=== PATIENT | female | born 1975 | race Two or more races ===

== ENCOUNTER 2018-09-01 12:25 | Emergency (ER) | payer MEDICAID ==
[~2018-09-01] VITALS: Ht 157.5 cm; Wt 78.6 kg
[2018-09-01 13:11] LABS: BASOPHILS % (AUTO) 0.5 % (0-1); EOSINOPHILS # (AUTO) 0.4 X10'3 (0-0.9); EOSINOPHILS % (AUTO) 4.4 % (0-6); HEMATOCRIT 41.8 % (35.0-45.0); LYMPHOCYTES # (AUTO) 1.2 X10'3 (1.1-4.8); LYMPHOCYTES % (AUTO) 14.3 % (21-51); MEAN CORPUSCULAR HEMOGLOBIN 27.8 PG (27.0-31.0); MEAN CORPUSCULAR HGB CONC 33.6 % (33.0-36.5); MEAN CORPUSCULAR VOLUME 82.7 FL (78-98); MEAN PLATELET VOLUME 7.8 FL (7.4-10.4); MONOCYTES # (AUTO) 0.5 X10'3 (0-0.9); MONOCYTES % (AUTO) 5.7 % (2-12); NEUTROPHILS # (AUTO) 6.5 X10'3 (1.8-7.7); NEUTROPHILS % (AUTO) 75.1 % (42-75); PLATELET COUNT 273 X10'3 (140-440); RED BLOOD COUNT 5.06 X10'6 (4.20-5.60); RED CELL DISTRIBUTION WIDTH 13.3 % (11.5-14.5); WHITE BLOOD COUNT 8.6 X10'3 (4.5-11.0)
[2018-09-01 13:19] LABS: ALANINE AMINOTRANSFERASE 21 U/L (12-78); ALBUMIN 3.7 G/DL (3.4-5.0); ALBUMIN/GLOBULIN RATIO 0.9 (1.1-1.5); ALKALINE PHOSPHATASE 67 IU/L (46-116); ANION GAP 11 (8-16); ASPARTATE AMINO TRANSFERASE 17 U/L (10-37); BILIRUBIN,TOTAL 0.4 MG/DL (0.1-1.0); BLOOD UREA NITROGEN 13 MG/DL (7-18); BUN/CREATININE RATIO 13.4 (6.6-38.0); CALCIUM 10.1 MG/DL (8.5-10.1); CHLORIDE 99 MMOL/L (99-107); CREATININE 0.97 MG/DL (0.40-0.90); GLUCOSE 97 MG/DL (70-104); POTASSIUM 3.4 MMOL/L (3.5-5.1); SODIUM 136 MMOL/L (135-145); TOTAL PROTEIN 7.9 G/DL (6.4-8.2); eGFR 63 ML/MIN
[2018-09-01 13:20] LABS: PARTIAL THROMBOPLASTIN TIME 29 SECONDS (22-32); PROTHROMBIN TIME 10.1 SECONDS (9.0-12.0)
[2018-09-01] MEDS ORDERED: PANT20TA3 PO (14:23)
[2018-09-01 14:34] VITALS: BP 132/92
== END 2018-09-01 14:37 | disposition home or self-care (01) ==
LOC: ER 12:26
DX: M94.0 Chondrocostal junction syndrome [Tietze] (principal); Z79.899 Other long term (current) drug therapy
CPT/HCPCS: 36415; 71045; 80053; 84484; 85025; 85610; 85730; 93005; 99284

== ENCOUNTER 2018-11-09 12:25 | Emergency (ER) | payer MEDICAID ==
[~2018-11-09] VITALS: Ht 157.5 cm; Wt 80.0 kg
[~2018-11-09 12:25] MED LIST: PANT20TA3 PO
[2018-11-09 13:33] LABS: CLARITY,URINE SLIGHTLY CLOUDY (Clear); COLOR,URINE STRAW (Yellow); GLUCOSE, URINE NEGATIVE (Neg); KETONES,URINE NEGATIVE (Neg); LEUKOCYTE ESTERASE ,URINE TRACE (Neg); NITRITES, URINE NEGATIVE (Neg); OCCULT BLOOD,URINE SMALL (Neg); PH,URINE 5.5 (4.8-8.0); PROTEIN,URINE NEGATIVE (Neg); UROBILINOGEN,URINE 0.2 E.U/dL (0.2-1.0)
[2018-11-09 13:35] LABS: URINE HCG NEGATIVE (NEG)
[2018-11-09 13:36] LABS: BASOPHILS % (AUTO) 0.7 % (0-1); EOSINOPHILS # (AUTO) 0.3 X10'3 (0-0.9); EOSINOPHILS % (AUTO) 4.8 % (0-6); HEMATOCRIT 42.7 % (35.0-45.0); HEMOGLOBIN 14.5 g/dl (12.0-16.0); LYMPHOCYTES # (AUTO) 1.2 X10'3 (1.1-4.8); LYMPHOCYTES % (AUTO) 17.8 % (21-51); MEAN CORPUSCULAR HEMOGLOBIN 27.9 PG (27.0-31.0); MEAN CORPUSCULAR HGB CONC 33.9 g/dL (33.0-36.5); MEAN CORPUSCULAR VOLUME 82.2 FL (78-98); MEAN PLATELET VOLUME 7.4 FL (7.4-10.4); MONOCYTES # (AUTO) 0.4 X10'3 (0-0.9); MONOCYTES % (AUTO) 6.3 % (2-12); NEUTROPHILS # (AUTO) 4.9 X10'3 (1.8-7.7); NEUTROPHILS % (AUTO) 70.4 % (42-75); PLATELET COUNT 266 X10'3 (140-440); RED BLOOD COUNT 5.19 X10'6 (4.20-5.60); RED CELL DISTRIBUTION WIDTH 13.7 % (11.5-14.5); WHITE BLOOD COUNT 6.9 X10'3 (4.5-11.0)
[2018-11-09 13:37] LABS: UA COLLECTION TYPE CLN CATCH MIDSTREAM
[2018-11-09 13:46] LABS: ALANINE AMINOTRANSFERASE 22 U/L (12-78); ALBUMIN 3.7 G/DL (3.4-5.0); ALBUMIN/GLOBULIN RATIO 0.8 (1.1-1.5); ALKALINE PHOSPHATASE 68 IU/L (46-116); ANION GAP 8 (8-16); ASPARTATE AMINO TRANSFERASE 17 U/L (10-37); BILIRUBIN,TOTAL 0.3 MG/DL (0.1-1.0); BLOOD UREA NITROGEN 18 MG/DL (7-18); BUN/CREATININE RATIO 18.2 (6.6-38.0); CALCIUM 9.2 MG/DL (8.5-10.1); CHLORIDE 99 MMOL/L (99-107); CREATININE 0.99 MG/DL (0.40-0.90); GLUCOSE 92 MG/DL (70-104); POTASSIUM 3.6 MMOL/L (3.5-5.1); SODIUM 136 MMOL/L (135-145); TOTAL CARBON DIOXIDE 29.1 MMOL/L (24-32); TOTAL PROTEIN 8.1 G/DL (6.4-8.2); eGFR 62 ML/MIN
[2018-11-09 14:08] LABS: MUCUS STRANDS NONE SEEN /LPF (Neg); SQUAMOUS EPITHELIAL CELL,UR FEW /LPF (FEW)
[2018-11-09 14:09] LABS: BACTERIA,URINE FEW /HPF (Neg); RBC,URINE 0-2 /HPF (0-2); WBC,URINE 0-4 /HPF (0-4)
[2018-11-09 16:00] VITALS: BP 143/92
== END 2018-11-09 16:02 | disposition home or self-care (01) ==
LOC: ER 12:25
DX: K42.9 Umbilical hernia without obstruction or gangrene (principal); R10.32 Left lower quadrant pain; R11.0 Nausea; Z79.899 Other long term (current) drug therapy
CPT/HCPCS: 36415; 74176; 80053; 81001; 81025; 85025; 87088; 93005; 99284

== ENCOUNTER 2018-11-17 02:13 | Emergency (ER) | payer MEDICAID ==
[~2018-11-17] VITALS: Ht 162.6 cm; Wt 75.0 kg
[2018-11-17 02:17] VITALS: BP 160/100
== END 2018-11-17 02:39 | disposition home or self-care (01) ==
LOC: ER 02:14
DX: R20.2 Paresthesia of skin (principal); R20.0 Anesthesia of skin; R42 Dizziness and giddiness; R07.9 Chest pain, unspecified; F43.9 Reaction to severe stress, unspecified; Z79.899 Other long term (current) drug therapy
CPT/HCPCS: 93005; 99283

== ENCOUNTER 2019-05-16 01:14 | Emergency (ER) | payer MEDICAID ==
[~2019-05-16] VITALS: Ht 157.5 cm; Wt 74.5 kg
[2019-05-16 02:07] LABS: BASOPHILS % (AUTO) 0.5 % (0-1); EOSINOPHILS # (AUTO) 0.4 X10'3 (0-0.9); EOSINOPHILS % (AUTO) 4.3 % (0-6); HEMATOCRIT 41.7 % (35.0-45.0); HEMOGLOBIN 13.9 g/dl (12.0-16.0); LYMPHOCYTES # (AUTO) 1.5 X10'3 (1.1-4.8); LYMPHOCYTES % (AUTO) 16.1 % (21-51); MEAN CORPUSCULAR HEMOGLOBIN 28.4 PG (27.0-31.0); MEAN CORPUSCULAR HGB CONC 33.4 g/dL (33.0-36.5); MEAN CORPUSCULAR VOLUME 84.9 FL (78-98); MONOCYTES # (AUTO) 0.6 X10'3 (0-0.9); MONOCYTES % (AUTO) 6.1 % (2-12); NEUTROPHILS # (AUTO) 6.6 X10'3 (1.8-7.7); PLATELET COUNT 231 X10'3 (140-440); RED BLOOD COUNT 4.91 X10'6 (4.20-5.60); RED CELL DISTRIBUTION WIDTH 13.4 % (11.5-14.5)
[2019-05-16 02:17] LABS: ALANINE AMINOTRANSFERASE 20 U/L (12-78); ALBUMIN 3.4 G/DL (3.4-5.0); ALBUMIN/GLOBULIN RATIO 0.9 (1.1-1.5); ALKALINE PHOSPHATASE 57 IU/L (46-116); ANION GAP 7 (8-16); ASPARTATE AMINO TRANSFERASE 12 U/L (10-37); BILIRUBIN,TOTAL 0.2 MG/DL (0.1-1.0); BLOOD UREA NITROGEN 15 MG/DL (7-18); BUN/CREATININE RATIO 14.7 (6.6-38.0); CALCIUM 8.1 MG/DL (8.5-10.1); CHLORIDE 104 MMOL/L (99-107); CREATININE 1.02 MG/DL (0.40-0.90); GLUCOSE 99 MG/DL (70-104); PARTIAL THROMBOPLASTIN TIME 30 SECONDS (22-32); POTASSIUM 3.6 MMOL/L (3.5-5.1); SODIUM 138 MMOL/L (135-145); TOTAL CARBON DIOXIDE 27.4 MMOL/L (24-32); TOTAL PROTEIN 7.4 G/DL (6.4-8.2); eGFR 59 ML/MIN
[2019-05-16 03:03] VITALS: BP 134/86
[2019-05-16] MEDS ORDERED: FAMO-128 PO (03:31)
[2019-05-16] MEDS ORDERED: MECL-111 PO (03:31)
== END 2019-05-16 03:49 | disposition home or self-care (01) ==
LOC: ER 01:15
DX: K29.70 Gastritis, unspecified, without bleeding (principal); H81.13 Benign paroxysmal vertigo, bilateral; I10 Essential (primary) hypertension; K21.9 Gastro-esophageal reflux disease without esophagitis; Z79.899 Other long term (current) drug therapy
CPT/HCPCS: 36415; 71045; 80053; 84484; 85025; 85610; 85730; 93005; 99284

== ENCOUNTER 2019-07-14 02:57 | Emergency (ER) | payer MEDICAID ==
[~2019-07-14] VITALS: Ht 157.5 cm; Wt 68.2 kg
[~2019-07-14 02:57] MED LIST changes: +FAMO-128 PO; +MECL-111 PO
[2019-07-14] MEDS ORDERED: ketorolac trometh. 30mg/ml inj. IV ONE (03:05)
[2019-07-14 03:35] LABS: URINE HCG NEGATIVE (NEG)
[2019-07-14 03:36] LABS: BASOPHILS % (AUTO) 0.6 % (0-1); EOSINOPHILS # (AUTO) 0.4 X10'3 (0-0.9); EOSINOPHILS % (AUTO) 4.7 % (0-6); HEMATOCRIT 39.2 % (35.0-45.0); HEMOGLOBIN 13.5 g/dl (12.0-16.0); LYMPHOCYTES # (AUTO) 1.7 X10'3 (1.1-4.8); LYMPHOCYTES % (AUTO) 21.9 % (21-51); MEAN CORPUSCULAR HEMOGLOBIN 29.1 PG (27.0-31.0); MEAN CORPUSCULAR HGB CONC 34.3 g/dL (33.0-36.5); MEAN CORPUSCULAR VOLUME 84.8 FL (78-98); MEAN PLATELET VOLUME 7.9 FL (7.4-10.4); MONOCYTES # (AUTO) 0.5 X10'3 (0-0.9); MONOCYTES % (AUTO) 6.8 % (2-12); NEUTROPHILS # (AUTO) 5.1 X10'3 (1.8-7.7); PLATELET COUNT 194 X10'3 (140-440); RED BLOOD COUNT 4.63 X10'6 (4.20-5.60); RED CELL DISTRIBUTION WIDTH 13.1 % (11.5-14.5); WHITE BLOOD COUNT 7.8 X10'3 (4.5-11.0)
[2019-07-14 03:41] LABS: CLARITY,URINE SLIGHTLY CLOUDY (Clear); COLOR,URINE YELLOW (Yellow); GLUCOSE, URINE NEGATIVE (Neg); KETONES,URINE NEGATIVE (Neg); LEUKOCYTE ESTERASE ,URINE NEGATIVE (Neg); NITRITES, URINE NEGATIVE (Neg); OCCULT BLOOD,URINE LARGE (Neg); PH,URINE 6.5 (4.8-8.0); PROTEIN,URINE NEGATIVE (Neg); UROBILINOGEN,URINE 0.2 E.U/dL (0.2-1.0)
[2019-07-14 03:42] LABS: UA COLLECTION TYPE CLN CATCH MIDSTREAM
[2019-07-14 03:48] LABS: ALANINE AMINOTRANSFERASE 20 U/L (12-78); ALBUMIN 3.5 G/DL (3.4-5.0); ALBUMIN/GLOBULIN RATIO 0.8 (1.1-1.5); ALKALINE PHOSPHATASE 62 IU/L (46-116); ANION GAP 8 (8-16); ASPARTATE AMINO TRANSFERASE 27 U/L (10-37); BACTERIA,URINE 1+ /HPF (Neg); BILIRUBIN,TOTAL 0.3 MG/DL (0.1-1.0); BLOOD UREA NITROGEN 15 MG/DL (7-18); BUN/CREATININE RATIO 15.5 (6.6-38.0); CHLORIDE 104 MMOL/L (99-107); CREATININE 0.97 MG/DL (0.40-0.90); GLUCOSE 94 MG/DL (70-104); HYALINE CASTS 0-3 /LPF (NEGATIVE); POTASSIUM 3.5 MMOL/L (3.5-5.1); SODIUM 140 MMOL/L (135-145); SQUAMOUS EPITHELIAL CELL,UR MODERATE /LPF (FEW); TOTAL CARBON DIOXIDE 28.4 MMOL/L (24-32); TOTAL PROTEIN 7.7 G/DL (6.4-8.2); WBC,URINE 0-4 /HPF (0-4); eGFR 63 ML/MIN
[2019-07-14 03:49] LABS: FINE GRANULAR CAST 0-3 /LPF (NEGATIVE); URINE AMPHETAMINE SCREEN NEGATIVE (Neg); URINE BARBITUATE SCREEN NEGATIVE (Neg); URINE BENZODIAZEPINES SCREEN NEGATIVE (Neg); URINE CANNABINOID SCREEN NEGATIVE (Neg); URINE COCAINE SCREEN NEGATIVE (Neg); URINE METHADONE SCREEN NEGATIVE (Neg); URINE OPIATE SCREEN NEGATIVE (Neg); URINE PHENCYCLIDINE SCREEN NEGATIVE (Neg)
[2019-07-14 03:56] LABS: MAGNESIUM 1.8 MG/DL (1.5-2.4)
[2019-07-14 04:21] VITALS: BP 159/95
== END 2019-07-14 04:25 | disposition home or self-care (01) ==
LOC: ER 02:58
DX: R07.89 Other chest pain (principal); I10 Essential (primary) hypertension; K21.9 Gastro-esophageal reflux disease without esophagitis; F17.200 Nicotine dependence, unspecified, uncomplicated; Z79.899 Other long term (current) drug therapy
CPT/HCPCS: 36415; 71045; 80053; 80305; 81001; 81025; 83735; 83880; 84484; 85025; 96374; 99284; J1885; 93005

== ENCOUNTER 2020-03-06 00:56 | Emergency (ER) | payer MEDICAID ==
[~2020-03-06] VITALS: Ht 157.5 cm; Wt 160.0 kg
[~2020-03-06 00:56] MED LIST changes: -MECL-111 PO; +MECL-159 PO
[2020-03-06] MEDS ORDERED: sucralfate 1gm/10ml UD suspension PO SCH (02:00)
[2020-03-06] MEDS ORDERED: LIDOcaine Viscous 15ml cup MM PRN (02:00)
[2020-03-06] MEDS ORDERED: ondansetron 4mg rapidly disintigrating tab PO ONE (02:00)
[2020-03-06] MEDS ORDERED: mag hydrox/Alum hydrox/simeth 30ml oral suspension PO ONE (02:00)
[2020-03-06] MEDS ORDERED: meclizine 12.5mg tablet PO ONE (02:00)
[2020-03-06 02:01] LABS: BASOPHILS # (AUTO) 0.1 X10'3 (0-0.2); BASOPHILS % (AUTO) 0.6 % (0-1); EOSINOPHILS # (AUTO) 0.3 X10'3 (0-0.9); HEMATOCRIT 41.5 % (35.0-45.0); LYMPHOCYTES # (AUTO) 1.7 X10'3 (1.1-4.8); LYMPHOCYTES % (AUTO) 15.1 % (21-51); MEAN CORPUSCULAR HEMOGLOBIN 28.8 PG (27.0-31.0); MEAN CORPUSCULAR HGB CONC 33.8 g/dL (33.0-36.5); MEAN CORPUSCULAR VOLUME 85.3 FL (78-98); MEAN PLATELET VOLUME 8.1 FL (7.4-10.4); MONOCYTES # (AUTO) 0.6 X10'3 (0-0.9); MONOCYTES % (AUTO) 5.4 % (2-12); NEUTROPHILS # (AUTO) 8.3 X10'3 (1.8-7.7); NEUTROPHILS % (AUTO) 75.9 % (42-75); PLATELET COUNT 232 X10'3 (140-440); RED BLOOD COUNT 4.86 X10'6 (4.20-5.60); RED CELL DISTRIBUTION WIDTH 13.6 % (11.5-14.5)
[2020-03-06 02:12] LABS: ALANINE AMINOTRANSFERASE 19 U/L (12-78); ALBUMIN 3.7 G/DL (3.4-5.0); ALBUMIN/GLOBULIN RATIO 0.9 (1.1-1.5); ALKALINE PHOSPHATASE 55 IU/L (46-116); ANION GAP 10 (8-16); ASPARTATE AMINO TRANSFERASE 19 U/L (10-37); BILIRUBIN,TOTAL 0.3 MG/DL (0.1-1.0); BLOOD UREA NITROGEN 11 MG/DL (7-18); BUN/CREATININE RATIO 10.5 (6.6-38.0); CALCIUM 8.6 MG/DL (8.5-10.1); CHLORIDE 102 MMOL/L (99-107); CREATININE 1.05 MG/DL (0.40-0.90); GLUCOSE 98 MG/DL (70-104); POTASSIUM 3.7 MMOL/L (3.5-5.1); SODIUM 139 MMOL/L (135-145); TOTAL CARBON DIOXIDE 26.8 MMOL/L (24-32); TOTAL PROTEIN 7.6 G/DL (6.4-8.2); eGFR 57 ML/MIN
[2020-03-06] MEDS ORDERED: ONDA4TAB6 PO (02:31)
[2020-03-06] MEDS ORDERED: OMEP20CA15 PO (02:31)
[2020-03-06] MEDS ORDERED: MECL-159 PO (02:31)
[2020-03-06 02:45] VITALS: BP 167/108
== END 2020-03-06 02:46 | disposition home or self-care (01) ==
LOC: ER 00:57
DX: K21.9 Gastro-esophageal reflux disease without esophagitis (principal); R07.89 Other chest pain; R11.2 Nausea with vomiting, unspecified; R42 Dizziness and giddiness; I10 Essential (primary) hypertension; Z98.890 Other specified postprocedural states
CPT/HCPCS: 36415; 71045; 80053; 82948; 84484; 85025; 93005; 99285; J8597

== ENCOUNTER 2020-07-05 01:20 | Emergency (ER) | payer MEDICAID ==
[~2020-07-05] VITALS: Ht 157.5 cm; Wt 68.2 kg
[~2020-07-05 01:20] MED LIST changes: +OMEP20CA15 PO; +ONDA4TAB6 PO; +PANT20TA18 PO; -PANT20TA3 PO
--- NOTE | 2020-07-05 01:32 | NUR ---
PT REPORTS SHE IS NOT STAYING AWAY FROM SALT INTAKE. INSTRUCTED HER TO STAY AWAY FROM FROZEN FOODS/PROCESSED FOODS/AND CANNED FOODS AND LIMIT EATING OUT. INFORMED.
[2020-07-05] MEDS ORDERED: metoprolol tartrate 50mg tablet PO ONE (02:50)
--- NOTE | 2020-07-05 02:50 | NUR ---
DR. LEES TALKING WITH PT ABOUT DC. HE REQUESTS TO TEST [facility] HOME UNIT AGAINST OURS. [facility] HOME WRIST BP MONITOR READING 155/104 ON L WRIST, ER ROOM MONITOR READING ON LEFT UPPER ARM 136/94,
[2020-07-05 03:07] VITALS: BP 138/89
== END 2020-07-05 03:11 | disposition home or self-care (01) ==
LOC: ER 01:21
DX: I10 Essential (primary) hypertension (principal); R42 Dizziness and giddiness; K21.9 Gastro-esophageal reflux disease without esophagitis; Z79.899 Other long term (current) drug therapy
CPT/HCPCS: 93005; 99283

== ENCOUNTER 2021-02-12 22:28 | Emergency (ER) | payer MEDICAID ==
[~2021-02-12] VITALS: Ht 157.5 cm; Wt 76.3 kg
[2021-02-12 23:46] VITALS: BP 151/95
== END 2021-02-12 23:49 | disposition home or self-care (01) ==
LOC: ER 22:28
DX: M79.671 Pain in right foot (principal); M79.89 Other specified soft tissue disorders; I10 Essential (primary) hypertension; K21.9 Gastro-esophageal reflux disease without esophagitis; Z79.899 Other long term (current) drug therapy
CPT/HCPCS: 99282

== ENCOUNTER 2023-01-19 11:37 | Emergency (ER) | payer MEDICAID ==
[~2023-01-19] VITALS: Ht 157.5 cm; Wt 68.2 kg
[2023-01-19 12:03] LABS: BASOPHILS % (AUTO) 0.5 % (0-1); EOSINOPHILS # (AUTO) 0.3 X10'3 (0-0.9); EOSINOPHILS % (AUTO) 4.1 % (0-6); HEMATOCRIT 42.1 % (35.0-45.0); HEMOGLOBIN 14.4 g/dl (12.0-16.0); LYMPHOCYTES # (AUTO) 1.3 X10'3 (1.1-4.8); LYMPHOCYTES % (AUTO) 20.6 % (21-51); MEAN CORPUSCULAR HEMOGLOBIN 28.5 PG (27.0-31.0); MEAN CORPUSCULAR HGB CONC 34.3 g/dL (33.0-36.5); MEAN CORPUSCULAR VOLUME 83.3 FL (78-98); MEAN PLATELET VOLUME 7.6 FL (7.4-10.4); MONOCYTES # (AUTO) 0.4 X10'3 (0-0.9); MONOCYTES % (AUTO) 5.6 % (2-12); NEUTROPHILS # (AUTO) 4.5 X10'3 (1.8-7.7); NEUTROPHILS % (AUTO) 69.2 % (42-75); PLATELET COUNT 243 X10'3 (140-440); RED BLOOD COUNT 5.06 X10'6 (4.20-5.60); RED CELL DISTRIBUTION WIDTH 13.5 % (11.5-14.5); WHITE BLOOD COUNT 6.5 X10'3 (4.5-11.0)
[2023-01-19 12:18] LABS: ALANINE AMINOTRANSFERASE 25 U/L (12-78); ALBUMIN 3.6 G/DL (3.4-5.0); ALBUMIN/GLOBULIN RATIO 0.9 (1.1-1.5); ALKALINE PHOSPHATASE 76 IU/L (46-116); ANION GAP 9 (8-16); ASPARTATE AMINO TRANSFERASE 21 U/L (10-37); BILIRUBIN,TOTAL 0.3 MG/DL (0.1-1.0); BLOOD UREA NITROGEN 16 MG/DL (7-18); BUN/CREATININE RATIO 14.5 (10.0-20.0); CALCIUM 9.9 MG/DL (8.5-10.1); CHLORIDE 100 MMOL/L (99-107); GLUCOSE 131 MG/DL (70-104); POTASSIUM 3.3 MMOL/L (3.5-5.1); SODIUM 139 MMOL/L (135-145); TOTAL CARBON DIOXIDE 30.5 MMOL/L (24-32); TOTAL PROTEIN 7.7 G/DL (6.4-8.2); eGFR 54 ML/MIN
[2023-01-19 12:26] LABS: MAGNESIUM 1.9 MG/DL (1.5-2.4)
[2023-01-19 13:28] VITALS: BP 140/102
[2023-01-19] MEDS ORDERED: LIDOcaine Viscous 15ml cup MM ONE ×2 (14:10→14:25)
[2023-01-19] MEDS ORDERED: ibuprofen 200mg tablet PO ONE (14:10)
[2023-01-19] MEDS ORDERED: pantoprazole 40mg Tablet.DR PO ONE (14:10)
[2023-01-19] MEDS ORDERED: mag hydrox/Alum hydrox/simeth 30ml oral suspension PO ONE (14:10)
== END 2023-01-19 14:56 | disposition home or self-care (01) ==
LOC: ER 11:38
DX: R07.89 Other chest pain (principal); I10 Essential (primary) hypertension; K21.9 Gastro-esophageal reflux disease without esophagitis
CPT/HCPCS: 36415; 71045; 80053; 83735; 83880; 84484; 85025; 93005; 99285; J7030

== ENCOUNTER 2023-08-27 15:32 | Inpatient (IN) | payer MEDICAID ==
[~2023-08-27] VITALS: Ht 157.5 cm; Wt 80.0 kg
[~2023-08-27 15:32] MED LIST changes: -MECL-159 PO; +MECL-302 PO
[2023-08-27 16:34] LABS: BASOPHILS # (AUTO) 0.1 X10'3 (0-0.2); BASOPHILS % (AUTO) 0.9 % (0-1); EOSINOPHILS # (AUTO) 0.3 X10'3 (0-0.9); EOSINOPHILS % (AUTO) 3.5 % (0-6); HEMATOCRIT 41.4 % (35.0-45.0); HEMOGLOBIN 13.9 g/dl (12.0-16.0); LYMPHOCYTES # (AUTO) 1.3 X10'3 (1.1-4.8); LYMPHOCYTES % (AUTO) 15.5 % (21-51); MEAN CORPUSCULAR HEMOGLOBIN 28.2 PG (27.0-31.0); MEAN CORPUSCULAR HGB CONC 33.6 g/dL (33.0-36.5); MEAN CORPUSCULAR VOLUME 84.2 FL (78-98); MEAN PLATELET VOLUME 7.3 FL (7.4-10.4); MONOCYTES # (AUTO) 0.5 X10'3 (0-0.9); MONOCYTES % (AUTO) 6.4 % (2-12); NEUTROPHILS # (AUTO) 6.1 X10'3 (1.8-7.7); NEUTROPHILS % (AUTO) 73.7 % (42-75); PLATELET COUNT 258 X10'3 (140-440); RED BLOOD COUNT 4.92 X10'6 (4.20-5.60); RED CELL DISTRIBUTION WIDTH 13.7 % (11.5-14.5); WHITE BLOOD COUNT 8.3 X10'3 (4.5-11.0)
[2023-08-27 17:10] LABS: ALANINE AMINOTRANSFERASE 25 U/L (12-78); ALBUMIN 3.6 G/DL (3.4-5.0); ALBUMIN/GLOBULIN RATIO 0.8 (1.1-1.5); ALKALINE PHOSPHATASE 81 IU/L (46-116); ANION GAP 8 (8-16); ASPARTATE AMINO TRANSFERASE 23 U/L (10-37); BILIRUBIN,TOTAL 0.2 MG/DL (0.1-1.0); BLOOD UREA NITROGEN 14 MG/DL (7-18); BUN/CREATININE RATIO 13.3 (10.0-20.0); CALCIUM 8.9 MG/DL (8.5-10.1); CHLORIDE 99 MMOL/L (99-107); CREATININE 1.05 MG/DL (0.40-0.90); GLUCOSE 110 MG/DL (70-104); POTASSIUM 3.7 MMOL/L (3.5-5.1); SODIUM 134 MMOL/L (135-145); TOTAL CARBON DIOXIDE 26.6 MMOL/L (24-32); TOTAL PROTEIN 8.1 G/DL (6.4-8.2); eCRCL 53 ML/MIN; eGFR 56 ML/MIN
[2023-08-27 17:18] LABS: PRO BRAIN NATRIURETIC PEPTIDE 68 PG/ML (0-125)
[2023-08-27] MEDS ORDERED: potassium Cl 40MEQ/1/2NS 520ml 520 ML IV PRN (18:00)
[2023-08-27] MEDS ORDERED: ondansetron/PF 4mg/2ml inj IV PRN (18:00)
[2023-08-27] MEDS ORDERED: magnesium 4gm in 100ml NS 100 ML IV PRN (18:00)
[2023-08-27] MEDS ORDERED: magnesium Cl slow-release 64mg tablet PO PRN (18:00)
[2023-08-27] MEDS ORDERED: acetaminophen 325mg tablet PO PRN ×2 (18:00)
[2023-08-27] MEDS ORDERED: HYDROcodone/acetaminophen 10/325mg tab PO PRN (18:00)
[2023-08-27] MEDS ORDERED: potassium Cl 20 mEq SR tablet PO PRN ×2 (18:00)
[2023-08-27] MEDS ORDERED: HYDROcodone/acetaminophen 5mg/325mg tablet PO PRN (18:00)
[2023-08-27] MEDS ORDERED: morphine 2 MG/ML inj. syringe IV PRN ×2 (18:00)
[2023-08-27] MEDS ORDERED: magnesium 2GM in 50ml NS 50 ML IV PRN (18:00)
[2023-08-27] MEDS ORDERED: nitroGLYCERIN 0.2mg/hour patch TD ONE (18:10)
[2023-08-27] MEDS: nicotine 14mg patch - 24hr TD SCH (18:15)
[2023-08-27] MEDS: normal saline 1000ml 1,000 ML IV SCH (18:54)
[2023-08-27] MEDS ORDERED: amLODIPine 5mg tablet PO ONE (19:45)
[2023-08-27 20:10] VITALS: BP 143/92; PULSE 82; TEMP 97.3; O2SAT 98
[2023-08-27 20:20] VITALS: RESP 16; O2SAT 96
[2023-08-27] MEDS: pantoprazole 40mg Tablet.DR PO SCH (20:52)
[2023-08-27 22:00] VITALS: BP 115/80; PULSE 84; RESP 12; TEMP 97.3; O2SAT 96
[2023-08-27] MEDS ORDERED: AMLO10TA PO (22:54)
[2023-08-28] VITALS (19 sets, daily range): BP systolic 121–175; BP diastolic 80–104; PULSE 76–135; RESP 14–28; TEMP 97.7–98.8; O2SAT 94–100
[2023-08-28] MEDS ORDERED: AMLO5TAB16 PO (03:27)
[2023-08-28] MEDS ORDERED: ONDA-103 PO (03:37)
[2023-08-28] MEDS ORDERED: MECL-302 PO (03:37)
[2023-08-28] MEDS ORDERED: OMEP40CA21 PO (03:37)
[2023-08-28] MEDS ORDERED: FAMO-49 PO (03:37)
[2023-08-28] MEDS: pantoprazole 40mg Tablet.DR PO SCH ×2 (08:00→20:30)
[2023-08-28] MEDS: enoxaparin 40mg/0.4ml syringe SUBCUT SCH (08:36)
[2023-08-28] MEDS: normal saline 1000ml 1,000 ML IV SCH ×2 (08:36→22:21)
[2023-08-28] MEDS: nicotine 14mg patch - 24hr TD SCH (08:36)
[2023-08-28 11:21] LABS: BASOPHILS % (AUTO) 0.5 % (0-1); EOSINOPHILS # (AUTO) 0.2 X10'3 (0-0.9); EOSINOPHILS % (AUTO) 2.6 % (0-6); HEMATOCRIT 39.3 % (35.0-45.0); HEMOGLOBIN 13.1 g/dl (12.0-16.0); LYMPHOCYTES % (AUTO) 12.9 % (21-51); MEAN CORPUSCULAR HEMOGLOBIN 28.1 PG (27.0-31.0); MEAN CORPUSCULAR HGB CONC 33.4 g/dL (33.0-36.5); MEAN CORPUSCULAR VOLUME 84.3 FL (78-98); MEAN PLATELET VOLUME 7.6 FL (7.4-10.4); MONOCYTES # (AUTO) 0.6 X10'3 (0-0.9); MONOCYTES % (AUTO) 7.3 % (2-12); NEUTROPHILS # (AUTO) 6.2 X10'3 (1.8-7.7); NEUTROPHILS % (AUTO) 76.7 % (42-75); PLATELET COUNT 243 X10'3 (140-440); RED BLOOD COUNT 4.67 X10'6 (4.20-5.60); RED CELL DISTRIBUTION WIDTH 13.8 % (11.5-14.5); WHITE BLOOD COUNT 8.1 X10'3 (4.5-11.0)
[2023-08-28 11:44] LABS: ALANINE AMINOTRANSFERASE 20 U/L (12-78); ALBUMIN 3.1 G/DL (3.4-5.0); ALBUMIN/GLOBULIN RATIO 0.8 (1.1-1.5); ALKALINE PHOSPHATASE 78 IU/L (46-116); ANION GAP 8 (8-16); ASPARTATE AMINO TRANSFERASE 28 U/L (10-37); BILIRUBIN,TOTAL 0.5 MG/DL (0.1-1.0); BLOOD UREA NITROGEN 13 MG/DL (7-18); BUN/CREATININE RATIO 14.3 (10.0-20.0); CALCIUM 8.4 MG/DL (8.5-10.1); CHLORIDE 103 MMOL/L (99-107); CREATININE 0.91 MG/DL (0.40-0.90); GLUCOSE 90 MG/DL (70-104); POTASSIUM 3.7 MMOL/L (3.5-5.1); SODIUM 137 MMOL/L (135-145); TOTAL CARBON DIOXIDE 26.1 MMOL/L (24-32); TOTAL PROTEIN 7.2 G/DL (6.4-8.2); eCRCL 61 ML/MIN; eGFR 67 ML/MIN
[2023-08-28] MEDS ORDERED: regadenoson 0.4mg/5ml syringe IV ONE (12:50)
[2023-08-28] MEDS ORDERED: aminophylline 500mg/20ml vial IV ONE (12:50)
[2023-08-29 01:57] VITALS: BP 143/95; PULSE 80; RESP 15; TEMP 98.6; O2SAT 95
[2023-08-29 03:14] VITALS: O2SAT 97
[2023-08-29 06:00] VITALS: BP 165/104; PULSE 90; RESP 20; TEMP 97.9; O2SAT 100
[2023-08-29 07:04] LABS: BASOPHILS % (AUTO) 0.6 % (0-1); EOSINOPHILS # (AUTO) 0.3 X10'3 (0-0.9); EOSINOPHILS % (AUTO) 4.5 % (0-6); HEMATOCRIT 43.1 % (35.0-45.0); HEMOGLOBIN 14.4 g/dl (12.0-16.0); LYMPHOCYTES # (AUTO) 1.2 X10'3 (1.1-4.8); LYMPHOCYTES % (AUTO) 18.5 % (21-51); MEAN CORPUSCULAR HEMOGLOBIN 28.4 PG (27.0-31.0); MEAN CORPUSCULAR HGB CONC 33.5 g/dL (33.0-36.5); MEAN CORPUSCULAR VOLUME 84.6 FL (78-98); MEAN PLATELET VOLUME 7.8 FL (7.4-10.4); MONOCYTES # (AUTO) 0.5 X10'3 (0-0.9); MONOCYTES % (AUTO) 7.8 % (2-12); NEUTROPHILS # (AUTO) 4.6 X10'3 (1.8-7.7); NEUTROPHILS % (AUTO) 68.6 % (42-75); PLATELET COUNT 221 X10'3 (140-440); RED BLOOD COUNT 5.09 X10'6 (4.20-5.60); WHITE BLOOD COUNT 6.7 X10'3 (4.5-11.0)
[2023-08-29 07:15] LABS: ALANINE AMINOTRANSFERASE 26 U/L (12-78); ALBUMIN 3.3 G/DL (3.4-5.0); ALBUMIN/GLOBULIN RATIO 0.7 (1.1-1.5); ALKALINE PHOSPHATASE 87 IU/L (46-116); ASPARTATE AMINO TRANSFERASE 19 U/L (10-37); BILIRUBIN,TOTAL 0.4 MG/DL (0.1-1.0); BLOOD UREA NITROGEN 12 MG/DL (7-18); BUN/CREATININE RATIO 13.2 (10.0-20.0); CALCIUM 8.4 MG/DL (8.5-10.1); CHLORIDE 101 MMOL/L (99-107); CREATININE 0.91 MG/DL (0.40-0.90); GLUCOSE 84 MG/DL (70-104); POTASSIUM 3.7 MMOL/L (3.5-5.1); SODIUM 136 MMOL/L (135-145); TOTAL PROTEIN 7.9 G/DL (6.4-8.2); eCRCL 61 ML/MIN; eGFR 67 ML/MIN
[2023-08-29 07:32] LABS: ANION GAP 9 (8-16)
[2023-08-29 08:00] VITALS: RESP 16; O2SAT 97
[2023-08-29] MEDS: enoxaparin 40mg/0.4ml syringe SUBCUT SCH (08:00)
[2023-08-29] MEDS ORDERED: amLODIPine 5mg tablet PO SCH (08:00)
[2023-08-29 11:00] VITALS: BP 138/91; PULSE 77; RESP 18; TEMP 97.7; O2SAT 97
[2023-08-29] MEDS: pantoprazole 40mg Tablet.DR PO SCH (11:20)
[2023-08-29] MEDS: nicotine 14mg patch - 24hr TD SCH (11:21)
[2023-08-29] MEDS ORDERED: mag hydrox/Alum hydrox/simeth 30ml oral suspension PO ONE (12:45)
[2023-08-29] MEDS: normal saline 1000ml 1,000 ML IV SCH (13:34)
[2023-08-29 15:00] VITALS: BP 165/104; PULSE 90; RESP 18; TEMP 97.9; O2SAT 100
[2023-08-29] MEDS ORDERED: isosorbide mononitrate 30mg tab.SR.24H PO SCH (15:20)
[2023-08-29] MEDS ORDERED: NICO-631 TD (17:53)
[2023-08-29] MEDS ORDERED: ISOS30TA84 PO (17:53)
[2023-08-29] MEDS ORDERED: LOP12.5T PO (17:53)
[2023-08-29] MEDS ORDERED: metoprolol tartrate 12.5mg (1/2 tablet) PO SCH (20:00)
== END 2023-08-29 19:20 | disposition home or self-care (01) | DRG 198 ==
LOC: ER 15:33 → ED HOLD 18:10 → EEVIPCON 18:10 → PCU 3S 20:08
PROVIDERS: ADMIT Internal Medicine; ATTEND Internal Medicine
PROC: 4A02XM4 Measurement of Cardiac Total Activity, External Approach (ICD-10-PCS; principal; 2023-08-28)
PROC: 3E033HZ Introduction of Radioactive Substance into Peripheral Vein, Percutaneous Approach (ICD-10-PCS; 2023-08-28)
DX: R07.89 Other chest pain (principal); I20.9 Angina pectoris, unspecified; F17.290 Nicotine dependence, other tobacco product, uncomplicated; K21.9 Gastro-esophageal reflux disease without esophagitis; I10 Essential (primary) hypertension; F41.8 Other specified anxiety disorders; Z79.82 Long term (current) use of aspirin
CPT/HCPCS: 36415; 71045; 78452; 80053; 83880; 84484; 85025; 87081; 93005; 93017; 93306; 99285; A6258; A9500; G0378; J1650; J2785; J7030

== ENCOUNTER 2023-09-01 20:56 | Emergency (ER) | payer MEDICAID ==
[~2023-09-01] VITALS: Ht 157.5 cm; Wt 80.0 kg
[~2023-09-01 20:56] MED LIST changes: +AMLO5TAB16 PO; -FAMO-128 PO; +FAMO-49 PO; +ISOS30TA84 PO; +LOP12.5T PO; -MECL-302 PO; +NICO-631 TD; -OMEP20CA15 PO; +OMEP40CA21 PO; +ONDA-103 PO; -ONDA4TAB6 PO; -PANT20TA18 PO
[2023-09-01 21:32] LABS: BASOPHILS # (AUTO) 0.1 X10'3 (0-0.2); BASOPHILS % (AUTO) 0.8 % (0-1); EOSINOPHILS # (AUTO) 0.4 X10'3 (0-0.9); EOSINOPHILS % (AUTO) 4.6 % (0-6); HEMATOCRIT 40.7 % (35.0-45.0); HEMOGLOBIN 13.8 g/dl (12.0-16.0); LYMPHOCYTES # (AUTO) 1.7 X10'3 (1.1-4.8); LYMPHOCYTES % (AUTO) 21.3 % (21-51); MEAN CORPUSCULAR HEMOGLOBIN 28.5 PG (27.0-31.0); MEAN CORPUSCULAR VOLUME 83.9 FL (78-98); MEAN PLATELET VOLUME 7.3 FL (7.4-10.4); MONOCYTES # (AUTO) 0.5 X10'3 (0-0.9); MONOCYTES % (AUTO) 6.7 % (2-12); NEUTROPHILS # (AUTO) 5.4 X10'3 (1.8-7.7); NEUTROPHILS % (AUTO) 66.6 % (42-75); PLATELET COUNT 258 X10'3 (140-440); RED BLOOD COUNT 4.85 X10'6 (4.20-5.60); RED CELL DISTRIBUTION WIDTH 13.8 % (11.5-14.5); WHITE BLOOD COUNT 8.2 X10'3 (4.5-11.0)
[2023-09-01 21:43] LABS: ALANINE AMINOTRANSFERASE 18 U/L (12-78); ALBUMIN 3.2 G/DL (3.4-5.0); ALBUMIN/GLOBULIN RATIO 0.7 (1.1-1.5); ALKALINE PHOSPHATASE 84 IU/L (46-116); ANION GAP 11 (8-16); ASPARTATE AMINO TRANSFERASE 23 U/L (10-37); BILIRUBIN,TOTAL 0.2 MG/DL (0.1-1.0); BLOOD UREA NITROGEN 11 MG/DL (7-18); BUN/CREATININE RATIO 11.2 (10.0-20.0); CALCIUM 8.7 MG/DL (8.5-10.1); CHLORIDE 99 MMOL/L (99-107); CREATININE 0.98 MG/DL (0.40-0.90); GLUCOSE 115 MG/DL (70-104); SODIUM 134 MMOL/L (135-145); TOTAL CARBON DIOXIDE 24.1 MMOL/L (24-32); eCRCL 57 ML/MIN; eGFR 61 ML/MIN
[2023-09-01 21:50] LABS: PRO BRAIN NATRIURETIC PEPTIDE 125 PG/ML (0-125)
[2023-09-01 21:54] LABS: POTASSIUM 3.8 MMOL/L (3.5-5.1)
[2023-09-01] MEDS ORDERED: metoprolol succinate 25mg (24-HOUR) SR. Tablet PO STA (22:26)
[2023-09-02 01:15] VITALS: BP 153/103; PULSE 76; RESP 16; TEMP 98.1; O2SAT 98
== END 2023-09-02 01:16 | disposition home or self-care (01) ==
LOC: ER 20:57
DX: R07.9 Chest pain, unspecified (principal); R42 Dizziness and giddiness; I10 Essential (primary) hypertension; K21.9 Gastro-esophageal reflux disease without esophagitis; Z79.899 Other long term (current) drug therapy; Z79.1 Long term (current) use of non-steroidal anti-inflammatories (NSAID)
CPT/HCPCS: 36415; 71045; 80053; 83880; 84484; 85025; 93005; 99285

== ENCOUNTER 2023-12-23 23:44 | Emergency (ER) | payer MEDICAID ==
[~2023-12-23] VITALS: Ht 157.5 cm; Wt 77.3 kg
[2023-12-24 00:03] VITALS: BP 126/93; PULSE 72; TEMP 97.3; O2SAT 98
[2023-12-24 00:46] LABS: BASOPHILS # (AUTO) 0.1 X10'3 (0-0.2); BASOPHILS % (AUTO) 0.9 % (0-1); EOSINOPHILS # (AUTO) 0.3 X10'3 (0-0.9); EOSINOPHILS % (AUTO) 3.2 % (0-6); HEMATOCRIT 39.5 % (35.0-45.0); HEMOGLOBIN 13.5 g/dl (12.0-16.0); LYMPHOCYTES # (AUTO) 2.2 X10'3 (1.1-4.8); LYMPHOCYTES % (AUTO) 22.3 % (21-51); MEAN CORPUSCULAR HEMOGLOBIN 28.2 PG (27.0-31.0); MEAN CORPUSCULAR HGB CONC 34.2 g/dL (33.0-36.5); MEAN CORPUSCULAR VOLUME 82.4 FL (78-98); MEAN PLATELET VOLUME 7.7 FL (7.4-10.4); MONOCYTES # (AUTO) 0.6 X10'3 (0-0.9); MONOCYTES % (AUTO) 6.3 % (2-12); NEUTROPHILS # (AUTO) 6.8 X10'3 (1.8-7.7); NEUTROPHILS % (AUTO) 67.3 % (42-75); PLATELET COUNT 278 X10'3 (140-440); RED CELL DISTRIBUTION WIDTH 13.4 % (11.5-14.5); WHITE BLOOD COUNT 10.1 X10'3 (4.5-11.0)
[2023-12-24 01:00] LABS: ALANINE AMINOTRANSFERASE 16 U/L (12-78); ALBUMIN 3.2 G/DL (3.4-5.0); ALBUMIN/GLOBULIN RATIO 0.7 (1.1-1.5); ALKALINE PHOSPHATASE 76 IU/L (46-116); ANION GAP 4 (8-16); ASPARTATE AMINO TRANSFERASE 16 U/L (10-37); BILIRUBIN,TOTAL 0.4 MG/DL (0.1-1.0); BLOOD UREA NITROGEN 18 MG/DL (7-18); BUN/CREATININE RATIO 14.3 (10.0-20.0); CALCIUM 8.5 MG/DL (8.5-10.1); CHLORIDE 100 MMOL/L (99-107); CREATININE 1.26 MG/DL (0.40-0.90); GLUCOSE 96 MG/DL (70-104); LIPASE 38 U/L (16-77); POTASSIUM 4.3 MMOL/L (3.5-5.1); SODIUM 135 MMOL/L (135-145); TOTAL CARBON DIOXIDE 30.6 MMOL/L (24-32); TOTAL PROTEIN 7.8 G/DL (6.4-8.2); eCRCL 44 ML/MIN; eGFR 46 ML/MIN
[2023-12-24] MEDS ORDERED: ONDA8TAB13 PO (04:00)
[2023-12-24] MEDS ORDERED: CLOT15CR10 TOP (04:00)
[2023-12-24 04:02] VITALS: RESP 16
== END 2023-12-24 04:10 | disposition home or self-care (01) ==
LOC: ER 23:44
DX: B35.4 Tinea corporis (principal); I10 Essential (primary) hypertension; K21.9 Gastro-esophageal reflux disease without esophagitis; Z79.899 Other long term (current) drug therapy
CPT/HCPCS: 36415; 80053; 83690; 85025; 99283

== ENCOUNTER 2024-07-01 20:36 | Emergency (ER) | payer MEDICAID ==
[~2024-07-01] VITALS: Ht 157.5 cm; Wt 82.7 kg
[~2024-07-01 20:36] MED LIST changes: +CLOT15CR10 TOP; +ONDA-245 PO
[2024-07-01 20:54] VITALS: TEMP 98
[2024-07-01 23:26] LABS: ALANINE AMINOTRANSFERASE 27 U/L (12-78); ALBUMIN 3.3 G/DL (3.4-5.0); ALBUMIN/GLOBULIN RATIO 0.8 (1.1-1.5); ALKALINE PHOSPHATASE 84 IU/L (46-116); ANION GAP 7 (8-16); ASPARTATE AMINO TRANSFERASE 30 U/L (10-37); BILIRUBIN,TOTAL 0.3 MG/DL (0.1-1.0); BLOOD UREA NITROGEN 18 MG/DL (7-18); BUN/CREATININE RATIO 15.7 (10.0-20.0); CALCIUM 9.2 MG/DL (8.5-10.1); CHLORIDE 101 MMOL/L (99-107); CREATININE 1.15 MG/DL (0.40-0.90); GLUCOSE 96 MG/DL (70-104); SODIUM 137 MMOL/L (135-145); TOTAL CARBON DIOXIDE 29.5 MMOL/L (24-32); TOTAL PROTEIN 7.6 G/DL (6.4-8.2); eCRCL 48 ML/MIN; eGFR 51 ML/MIN
[2024-07-01] MEDS ORDERED: AMLO10TA PO (23:49)
[2024-07-02] MEDS: amLODIPine 5mg tablet PO ONE
[2024-07-02 00:05] VITALS: BP 168/116; PULSE 77; RESP 18; O2SAT 97
== END 2024-07-02 00:09 | disposition home or self-care (01) ==
LOC: ER 20:37
DX: I10 Essential (primary) hypertension (principal); K21.9 Gastro-esophageal reflux disease without esophagitis; F41.9 Anxiety disorder, unspecified; Z59.00 Homelessness unspecified; Z79.899 Other long term (current) drug therapy
CPT/HCPCS: 36415; 80053; 84484; 93005; 99284